=== PATIENT | male | born 1985 | race Caucasian/White ===

== ENCOUNTER 2017-04-29 16:56 | Emergency (ER) | payer OTHER ==
[~2017-04-29] VITALS: Ht 165.1 cm; Wt 95.0 kg
[~2017-04-29 16:56] MED LIST: NAPROSYN500 MG PO
[2017-04-29 20:15] LABS: ADD MIUA? NO; BILIRUBIN NEGATIVE; BLOOD NEGATIVE; COLOR STRAW ((YELLOW)); GLUCOSE (STRIP) NEGATIVE; KETONES NEGATIVE; LEUKOCYTES NEGATIVE; NITRITE NEGATIVE; PROTEIN (STRIP) NEGATIVE; SPECIFIC GRAVITY 1.011 (1.000-1.030); UCUL ADDED? NO; UROBILINOGEN 0.2 MG/DL (0.2-1.0)
[2017-04-29] MEDS ORDERED: ULTRAM50 MG PO (21:06)
[2017-04-29] MEDS ORDERED: MOTRIN800 MG PO (21:06)
[2017-04-29 21:13] VITALS: BP 131/68
== END 2017-04-29 21:13 | disposition home or self-care (01) ==
LOC: EME 16:56
PROVIDERS: Nurse Practitioner Family
DX: R10.32 Left lower quadrant pain (principal); F41.9 Anxiety disorder, unspecified; F17.200 Nicotine dependence, unspecified, uncomplicated; F19.10 Other psychoactive substance abuse, uncomplicated; F10.10 Alcohol abuse, uncomplicated
CPT/HCPCS: 74000; 81003; 99281; 99283

== ENCOUNTER 2018-02-21 18:06 | Emergency (ER) | payer OTHER ==
[~2018-02-21] VITALS: Ht 175.3 cm; Wt 91.1 kg
[~2018-02-21 18:06] MED LIST changes: +MOTRIN800 MG PO; +ULTRAM50 MG PO
[2018-02-21 19:06] LABS: HEMATOCRIT 46.6 % (38.0-50.0); HEMOGLOBIN 16.4 G/DL (12.5-16.6); MCH 28.5 PG (29.0-34.0); MCHC 35.2 G/DL (30.0-36.0); PLATELET COUNT 292 K/uL (156-360); RBC DIS.WIDTH-SD 40.8 % (39-53); RED BLOOD COUNT 5.75 M/uL (4.00-5.50); WHITE BLOOD COUNT 15.5 K/uL (4.1-10.2)
[2018-02-21 19:15] LABS: ALBUMIN 4.5 g/dL (3.2-4.8); CHLORIDE 104 mEq/L (99-109); POTASSIUM 3.8 mEq/L (3.7-5.4); SODIUM 139 mEq/L (136-147)
[2018-02-21 19:18] LABS: GLUCOSE 107 mg/dL (70-99); TOTAL PROTEIN 8.2 g/dL (6.4-8.3)
[2018-02-21 19:20] LABS: TOTAL BILIRUBIN 0.7 mg/dL (0.0-1.0)
[2018-02-21 19:21] LABS: ALKALINE PHOSPHATASE 86 IU/L (3-129); CREATININE 0.9 mg/dL (0.6-1.3); GFR ESTIMATE (CALCULATED) > 59 mL/min/ (58.99-99999)
[2018-02-21 19:22] LABS: UREA NITROGEN (BUN) 8 mg/dL (9-23)
[2018-02-21 19:23] LABS: AST (GOT) 30 IU/L (2-34)
[2018-02-21 19:24] LABS: ALT (GPT) 44 IU/L (3-49)
[2018-02-21 19:57] LABS: APPEARANCE CLEAR ((CLEAR)); BILIRUBIN NEGATIVE; BLOOD NEGATIVE; COLOR YELLOW ((YELLOW)); GLUCOSE (STRIP) NEGATIVE; KETONES NEGATIVE; LEUKOCYTES NEGATIVE; NITRITE NEGATIVE; PROTEIN (STRIP) NEGATIVE; SPECIFIC GRAVITY 1.016 (1.000-1.030); UCUL ADDED? NO; UROBILINOGEN 0.2 MG/DL (0.2-1.0)
[2018-02-21 20:04] LABS: LIPASE 6 U/L (1.0-51.0)
[2018-02-21 20:41] LABS: AMPHETAMINE NEGATIVE (500 ng/mL); BARBITURATES NEGATIVE (200 ng/mL); BENZODIAZEPINES NEGATIVE (150 ng/mL); BUPRENORPHINE NEGATIVE (10 ng/mL); COCAINE NEGATIVE (150 ng/mL); METHADONE NEGATIVE (200 ng/mL); METHAMPHETAMINE NEGATIVE (500 ng/mL); OPIATES (MORPHINE) NEGATIVE (100 ng/mL); OXYCODONE NEGATIVE (100 ng/mL); PHENCYCLIDINE NEGATIVE (25 ng/mL); PROPOXYPHENE NEGATIVE (300 ng/mL); THC CANNABINOIDS PRESUMPTIVE POSITIVE (50 ng/mL); TRICYCLIC ANTIDEPRESSANTS NEGATIVE (300 ng/mL)
[2018-02-21] MEDS ORDERED: ZOFRAN ODT4 MG PO (22:11)
[2018-02-21] MEDS ORDERED: BENTYL20 MG PO (22:11)
[2018-02-21 23:00] VITALS: BP 134/78
== END 2018-02-21 23:00 | disposition home or self-care (01) ==
LOC: EME 18:06
DX: R10.9 Unspecified abdominal pain (principal); R11.2 Nausea with vomiting, unspecified; R19.7 Diarrhea, unspecified; M51.27 Other intervertebral disc displacement, lumbosacral region; F41.9 Anxiety disorder, unspecified; F17.200 Nicotine dependence, unspecified, uncomplicated
CPT/HCPCS: 74176; 80053; 81003; 83690; 84999; 85027; 99281; 99285; J0500; J1885